=== PATIENT | male | born 1960 | race Caucasian/White ===

== ENCOUNTER 2024-04-14 19:05 | Emergency (ER) | payer MEDICAID, MEDICARE ==
[2024-04-14] MEDS ORDERED: Sodium Chloride 0.9% 10 ML Syringe FLUSH PRN (19:14)
[2024-04-14] MEDS ORDERED: Sodium Chloride 0.9% 1,000 ML IV SCH (19:15)
[2024-04-14 19:57] LABS: BASE EXCESS VENOUS,POC -2 mmol/L (-2 - 3+); PCO2 VENOUS,POC 48 mmHg (41-51); PH VENOUS,POC 7.32 pH Units (7.32-7.43)
[2024-04-14] MEDS: 50% Dextrose in Water 50 ML Syringe IVPUSH ONE (20:00)
[2024-04-14] MEDS: Glucagon,Human Recombinant 1 MG Vial IM ONE (20:06)
[2024-04-14 20:11] LABS: BASOPHILS ABSOLUTE AUTO 0.1 x10-3/uL (0.0-0.3); BASOPHILS PERCENT AUTO 1.3 % (0.3-3.8); EOSINOPHILS ABSOLUTE AUTO 0.4 x10-3/uL (0.0-0.6); EOSINOPHILS PERCENT AUTO 3.5 % (0.1-6.8); HEMOGLOBIN 13.1 g/dL (12.9-17.7); LYMPHOCYTES ABSOLUTE AUTO 2.2 x10-3/uL (0.5-4.5); LYMPHOCYTES PERCENT AUTO 20.4 % (15.8-45.3); MEAN CORPUSCULAR HEMOGLOBIN 30.6 pg (27.0-33.3); MEAN CORPUSCULAR HGB CONC 33.6 g/dL (28.7-35.3); MEAN CORPUSCULAR VOLUME 90.9 fL (80.8-98.7); MEAN PLATELET VOLUME 8.1 fL (6.7-11.0); MONOCYTES PERCENT AUTO 9.2 % (5.5-15.2); NEUTROPHILS ABSOLUTE AUTO 7.1 x10-3/uL (1.7-6.9); NEUTROPHILS PERCENT AUTO 65.6 % (40.3-71.8); PLATELET COUNT,PLT 365 x10(3)uL (117-477); RED BLOOD CELL COUNT 4.29 x10(6)uL (3.90-5.90); RED CELL DISTRIBUTION WIDTH 16.7 % (12.4-15.0); WHITE BLOOD CELL COUNT,WBC 10.8 x10-3/uL (3.2-10.1)
[2024-04-14 20:15] LABS: A/G RATIO 0.8; ALANINE AMINOTRANSFERASE,ALT 20 U/L (12-36); ALBUMIN 3.2 g/dL (3.2-4.6); ALKALINE PHOSPHATASE 61 IU/L (56-112); ASPARTATE AMNIOTRANSFERASE,AST 11 IU/L (5-25); BILIRUBIN TOTAL 0.5 mg/dL (0.1-1.3); BLOOD UREA NITROGEN,BUN 39 mg/dL (7-18); CALCIUM 8.5 mg/dL (8.6-10.2); CARBON DIOXIDE,CO2 26 mmol/L (21-32); CHLORIDE,CL 98 mmol/L (100-110); ESTIMATED GFR 9 mL/min (>60); GLUCOSE RANDOM 104 mg/dL (80-116); POTASSIUM,K 4.5 mmol/L (3.5-5.3); PROTEIN TOTAL,TP 7.3 g/dL (6.0-8.0); SODIUM,NA 138 mmol/L (135-145)
[2024-04-14 20:18] LABS: TROPONIN I 11.5 pg/mL (4.0-60.3)
[2024-04-14 20:26] LABS: ETHANOL BLOOD MEDICAL < 0.03 % (<0.03)
[2024-04-14 20:29] LABS: CREATININE 6.5 mg/dL (0.70-1.30)
== END 2024-04-14 21:25 | disposition home or self-care (01) ==
LOC: FB.ED 19:05
DX: E11.649 Type 2 diabetes mellitus with hypoglycemia without coma (principal); E11.22 Type 2 diabetes mellitus with diabetic chronic kidney disease; N18.6 End stage renal disease; R41.82 Altered mental status, unspecified; E78.5 Hyperlipidemia, unspecified; Z99.2 Dependence on renal dialysis; Z79.899 Other long term (current) drug therapy
CPT/HCPCS: 36415; 70450; 71045; 80053; 80307; 82947; 84484; 85025; 93005; 93010; 96372; 96374; 99285; J1611